=== PATIENT | male | born 1960 | race Two or more races ===

== ENCOUNTER 2018-01-22 02:31 | Emergency (ER) | payer OTHER ==
[~2018-01-22] VITALS: Ht 165.1 cm; Wt 81.6 kg
[2018-01-22] MEDS ORDERED: ONDANSETRON HCL/PF 4 MG/2 ML VIAL ONE (02:44)
[2018-01-22] MEDS ORDERED: HYDROMORPHONE INJ 0.5 MG/0.5 ML SYRINGE ONE (02:45)
[2018-01-22] MEDS ORDERED: FAMOTIDINE/PF INJ 20 MG/2 ML VIAL IV ONE ×2 (02:45→03:00)
--- NOTE | 2018-01-22 02:48 | NUR ---
EKG AT BEDSIDE
--- NOTE | 2018-01-22 02:52 | NUR ---
BLOOD SENT WITH RELATIONSHIP MANAGEMENT LEAD
--- NOTE | 2018-01-22 02:58 | NUR ---
PT BRIB LAFD FOUND AT IN N OUT, C/O RLQ PAIN RADIATING DOWN TO R GROIN X 2 DAYS, PER PT ETOH CONSUMPTION LAST PT A/O X 4/GCS 15, BREATHING EVEN/UNLABORED, NSR ON DOPER, ABD SOFT/NON DISTENDED, 8/10 PAIN RLQ SHARP X 2 DAYS DENEIS N/V/D
[2018-01-22] MEDS ORDERED: ONDANSETRON HCL/PF 4 MG/2 ML VIAL IVP ONE (03:00)
[2018-01-22] MEDS ORDERED: ASPIRIN 81 MG TAB.CHEW PO ONE (03:00)
[2018-01-22] MEDS ORDERED: HYDROMORPHONE INJ 2 MG/ML DISP.SYRIN IV ONE (03:00)
--- NOTE | 2018-01-22 03:00 | NUR ---
PT TO CT AT THIS TIME
[2018-01-22 03:02] LABS: BASOPHILS # (AUTO) 0.1 /CMM (0.0-0.2); BASOPHILS % (AUTO) 1.2 % (0.0-2.0); EOSINOPHILS # (AUTO) 0.3 /CMM (0.0-0.7); EOSINOPHILS % (AUTO) 4.7 % (0.0-6.0); HEMATOCRIT 45 % (39-51); HEMOGLOBIN 15.4 g/dL (13.5-17.5); LYMPHOCYTES # (AUTO) 0.3 /CMM (0.8-4.8); LYMPHOCYTES % (AUTO) 4.8 % (20.0-44.0); MEAN CORPUSCULAR HEMOGLOBIN 32 PG (26.0-33.0); MEAN CORPUSCULAR HGB CONC 35 g/dl (31.0-36.0); MEAN CORPUSCULAR VOLUME 93 fL (80-96); MONOCYTES # (AUTO) 0.6 /CMM (0.1-1.30); NEUTROPHILS # (AUTO) 4.5 /CMM (1.8-8.9); NEUTROPHILS % (AUTO) 79.3 % (43.0-81.0); PLATELET COUNT (AUTO) 174 /CMM (150-450); RDW COEFFICIENT OF VARIATION 14.8 (11.5-15.0); RED BLOOD CELL COUNT(AUTO) 4.79 MIL/uL (4.5-6.0); WHITE BLOOD COUNT (AUTO) 5.7 K/uL (4.3-11.0)
[2018-01-22] MEDS ORDERED: ASPIRIN 81 MG TAB.CHEW ONE (03:10)
[2018-01-22 03:13] LABS: CALCIUM, SERUM 8.4 mg/dL (8.5-10.1); CARBON DIOXIDE 27 mmol/L (21-32); CHLORIDE 103 mmol/L (98-107); CREATININE 0.7 mg/dL (0.6-1.3); GLUCOSE 151 mg/dL (74-106); POTASSIUM 3.5 mmol/L (3.5-5.1); SODIUM SERUM 140 mmol/L (136-145); UREA NITROGEN, BLOOD 7 mg/dL (7-18)
[2018-01-22 03:20] LABS: ALANINE AMINOTRANSFERASE 31 U/L (12-78); ALBUMIN 3.1 g/dL (3.4-5.0); ALKALINE PHOSPHATASE 86 U/L (46-116); ASPARTATE AMINOTRANSFERASE 38 U/L (15-37); BILIRUBIN,DIRECT 0.2 mg/dL (0.0-0.2); BILIRUBIN,TOTAL 0.4 mg/dL (0.2-1.0); LIPASE 223 U/L (73-393); TOTAL PROTEIN, SERUM 8.3 g/dL (6.4-8.2); TROPONIN I < 0.017 ng/mL (0.00-0.056)
--- NOTE | 2018-01-22 04:14 | NUR ---
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
[2018-01-22] MEDS ORDERED: PIPERACILLIN /TAZOBACTAM 3.375 G VIAL IV ONE (04:20)
[2018-01-22] MEDS ORDERED: PIPERACILLIN /TAZOBACTAM 3.375 G in IV D5W 50 ML IV ONE (04:30)
--- NOTE | 2018-01-22 05:34 | NUR ---
PT SLEEPING BREATHING SNORING LOUDLY/EVEN/UNLABORED, NAD NOTED, NO ACUTE CHANGES, WAITING ON 2ND TROPONIN DRAW/RESULTS
[2018-01-22 05:38] LABS: OCCULT BLOOD STOOL NEGATIVE (NEGATIVE)
--- NOTE | 2018-01-22 07:00 | NUR ---
PT AMBULATED OUT OF ER STEADY GAIT, BREATHING UNLABORED, VS STABLE/WNL, D/C INSTRUCTINS, COPIES OF LAB, PRESCRIPTIONS GIVEN, VERBALIZED UNDERSTANDING OF ALL INSTRUCITONS
[2018-01-22 07:04] VITALS: BP 121/66
== END 2018-01-22 07:04 | disposition home or self-care (01) ==
LOC: ER 02:35
DX: R10.31 Right lower quadrant pain (principal); F10.20 Alcohol dependence, uncomplicated; R94.31 Abnormal electrocardiogram [ECG] [EKG]; Z79.82 Long term (current) use of aspirin
CPT/HCPCS: 36415; 71045-TC; 76705-TC; 80048-TC; 80076-TC; 82272-TC; 83690-TC; 84484-TC; 85025-TC; 85730-TC; A4606; J2405; J2543; J3490; J7060; Z7610

== ENCOUNTER 2018-02-05 01:26 | Emergency (ER) | payer OTHER ==
[~2018-02-05] VITALS: Ht 172.7 cm; Wt 81.6 kg
[2018-02-05 01:28] VITALS: BP 154/86
== END 2018-02-05 04:04 | disposition home or self-care (01) ==
LOC: ER 01:27
DX: F10.20 Alcohol dependence, uncomplicated (principal)
CPT/HCPCS: A4606; Z7610